=== PATIENT | female | born 1995 | race Hispanic/Latino ===

== ENCOUNTER 2019-08-24 18:14 | Inpatient (IN) | payer SELFPAY ==
[2019-08-24] MEDS ORDERED: NA CHLORIDE 0.9% 1,000 ML ONE (20:12)
[2019-08-24] MEDS ORDERED: MORPHINE 4 MG/ML SYR ONE ×3 (20:12→23:56)
[2019-08-24] MEDS ORDERED: CEFTRIAXONE/SWI 1gm 1 GM/10 ML SYR ONE (20:12)
[2019-08-24] MEDS ORDERED: ONDANSETRON 4 MG/2 ML VIAL ONE ×2 (20:12→23:57)
[2019-08-24 20:18] LABS: Absolute Lymphocytes (CBC) 1.7 K/uL (0.7-4.9); Basophils % 0.6 % (0-1.3); Hematocrit 46.3 % (36.0-45.0); MPV 6.9 fL (7.6-11.3); RBC Red Blood Cell Count 5.31 M/uL (3.86-4.86)
--- NOTE | 2019-08-24 20:21 | RAD REPORT ---
EXAM DESCRIPTION: RAD - Chest Single View - 08/24/2019 8:16 pm CLINICAL HISTORY: Cough;Abdominal distention Chest pain. COMPARISON: No comparisons FINDINGS: Portable technique limits examination quality. The lungs are grossly clear. The heart is normal in size. No displaced fractures. IMPRESSION: No acute intrathoracic process suspected.
[2019-08-24] MEDS ORDERED: ACETAMINOPHEN 325 MG TABLET ONE (20:44)
[2019-08-24 20:59] LABS: ALT/SGPT 31 U/L (12-78); AST/SGOT 16 U/L (15-37); Albumin 3.4 g/dL (3.4-5.0); Alkaline Phosphatase 133 U/L (45-117); BUN Blood Urea Nitrogen 10 mg/dL (7-18); Bicarbonate 24 mmol/L (21-32); Bilirubin Direct < 0.1 mg/dL (0-0.2); Bilirubin Total 0.4 mg/dL (0.2-1.0); Glucose Level 303 mg/dL (74-106); Lipase 89 U/L (73-393); Potassium 3.8 mmol/L (3.5-5.1); Protein, Total 8.2 g/dL (6.4-8.2); Sodium Level 135 mmol/L (136-145)
[2019-08-24 21:05] LABS: HCG, Quantitative < 1 mIU/mL (1-3)
[2019-08-24 21:13] LABS: Urine Blood 1+ (NEG); Urine Glucose 2+ (NEG); Urine Protein 2+ (NEG); Urine Specific Gravity 1.015 (1.005-1.030)
[2019-08-24] MEDS ORDERED: METRONIDAZOLE 500mg IVPB 500 MG/100 ML BAG IV ONE (22:11)
[2019-08-24] MEDS ORDERED: Levofloxacin500mg IV 500 MG/100 ML BAG IV ONE (22:11)
[2019-08-24] MEDS ORDERED: INSULIN -REGULAR HUMAN 50 UNIT/0.5 ML ML ONE (22:58)
--- NOTE | 2019-08-24 23:06 | ER ---
Nurse's Notes [facility] Name: Aurelia Henry Age: 24 yrs Sex: Female : 1995 Arrival Date: 08/24/2019 Time: 18:17 Bed 13 Private MD: Diagnosis: Fever, unspecified;Abdominal tenderness;Vomiting;Pelvic and perineal pain;Type 2 diabetes mellitus Presentation: 08/24 18:51 Presenting complaint: Patient states: PAIN STARTED FRIDAY. IT IS CONSTANTLY MOVING, rv CRAMPING AND THROBBING PAIN. ALSO COMPLAINS OF HEADACHE. RUNNING FEVER, TAKES TYLENOL. PATIENT HAD A MISCARRIAGE LAST JULY. Transition of care: patient was not received from another setting of care. Onset of symptoms was August 22, 2019 at 08:00. Risk Assessment: Do you want to hurt yourself or someone else? Patient reports no desire to harm self or others. Initial Sepsis Screen: Does the patient have a suspected source of infection?. Care prior to arrival: None. 18:51 Method Of Arrival: Ambulatory rv 18:51 Acuity: MONSE 3 rv 19:10 Initial Sepsis Screen: Does the patient meet any 2 criteria? Temp <36.0*C (96.8*F)) or jb4 > 38.3*C (100.9*F). HR > 90 bpm. Yes Does the patient have a suspected source of infection? Yes: Acute abdominal pain. 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 - Social history:: Smoking status: unknown. - Ebola Screening: : No symptoms or risks identified at this time. Screenin:10 Abuse screen: Denies threats or abuse. Nutritional screening: No deficits noted. jb4 Tuberculosis screening: No symptoms or risk factors identified. Fall Risk None identified. Assessment: 19:10 General: Appears in no apparent distress. uncomfortable, Behavior is cooperative, jb4 appropriate for age. Pain: Complains of pain in back and abdomen Pain does not radiate. Pain currently is 10 out of 10 on a pain scale. Quality of pain is described as throbbing. Neuro: Level of Consciousness is awake, alert, obeys commands, Oriented to person, place, time, situation. Cardiovascular: Patient's skin is warm and dry. Respiratory: Airway is patent Respiratory effort is even, unlabored, Respiratory pattern is regular, symmetrical. GI: No deficits noted. No signs and/or symptoms were reported involving the gastrointestinal system. : No deficits noted. No signs and/or symptoms were reported regarding the genitourinary system. EENT: No deficits noted. No signs and/or symptoms were reported regarding the EENT system. Derm: Skin is intact, Skin is pink, warm \T\ dry. Musculoskeletal: Circulation, motion, and sensation intact. Range of motion: intact in all extremities. 20:30 Reassessment: Patient appears in no apparent distress at this time. Patient and/or jb4 family updated on plan of care and expected duration. Pain level reassessed. Patient is alert, oriented x 3, equal unlabored respirations, skin warm/dry/pink. Patient states feeling better. 21:30 Reassessment: Patient appears in no apparent distress at this time. Patient and/or jb4 family updated on plan of care and expected duration. Pain level reassessed. Patient is alert, oriented x 3, equal unlabored respirations, skin warm/dry/pink. 22:45 Reassessment: Patient appears in no apparent distress at this time. Patient and/or jb4 family updated on plan of care and expected duration. Pain level reassessed. Patient is alert, oriented x 3, equal unlabored respirations, skin warm/dry/pink. Patient states feeling better. 08/25 00:00 Reassessment: Patient appears in no apparent distress at this time. Patient and/or jb4 family updated on plan of care and expected duration. Pain level reassessed. Patient is alert, oriented x 3, equal unlabored respirations, skin warm/dry/pink. 01:00 Reassessment: Patient appears in no apparent distress at this time. Patient and/or jb4 family updated on plan of care and expected duration. Pain level reassessed. Patient is alert, oriented x 3, equal unlabored respirations, skin warm/dry/pink. Vital Signs: 08/24 18:53 BP 124 / 102; Pulse 128; Resp 19; Pulse Ox 100% ; Weight 81.65 kg; Height 5 ft. 4 in. rv (162.56 cm); 19:22 Temp 100.2(O); mt 22:00 BP 105 / 61; Pulse 98; Resp 16; Pulse Ox 98% on R/A; mt 22:45 BP 105 / 68; Pulse 91; Resp 18; Temp 98.7(O); Pulse Ox 93% on R/A; jb4 08/25 00:00 BP 118 / 50; Pulse 101; Resp 16; Pulse Ox 95% on R/A; jb4 01:00 BP 116 / 69; Pulse 104; Resp 16; Temp 99.1(O); Pulse Ox 99% on R/A; jb4 08/24 18:53 Body Mass Index 30.90 (81.65 kg, 162.56 cm) rv ED Course: 08/24 18:17 Patient arrived in ED. mr 18:53 Triage completed. rv 19:07 Nils Cedeño MD is Attending Physician. [facility] 19:09 Rajat Foreman, RN is Primary Nurse. jb4 19:10 Patient has correct armband on for positive identification. Placed in gown. Bed in low jb4 position. Call light in reach. Side rails up X 1. Pulse ox on. NIBP on. 19:10 Arm band placed on right wrist. jb4 20:04 Inserted saline lock: 22 gauge in right antecubital area, using aseptic technique. mt Blood collected. 20:17 Chest Single View XRAY In Process Unspecified. EDMS 22:08 CT Abd/Pelvis - PO and IV Contrast In Process Unspecified. EDMS 23:04 Rajat Delatorre MD is Hospitalizing Provider. delisa 23:30 Chidi Dozier is Hospitalizing Provider. [facility] 08/25 00:10 Assist provider with pelvic exam: Set up pelvic tray. Performed by Nils Cedeño MD ea Specimens sent to lab. Patient tolerated well. 01:07 Patient admitted, IV remains in place. jb4 Administered Medications: 08/24 20:19 Drug: Zofran 4 mg Route: IVP; Site: right antecubital; jb4 20:50 Follow up: Response: No adverse reaction; Nausea is decreased jb4 20:22 Drug: morphine 4 mg {Note: Rass score 1.} Route: IVP; Site: right antecubital; jb4 20:50 Follow up: Response: No adverse reaction; Pain is decreased; RASS: Alert and Calm (0) [facility] 20:23 Drug: Rocephin 1 grams Route: IV; Rate: per protocol; Site: right antecubital; [facility] 20:25 Follow up: Response: No adverse reaction; IV Status: Completed infusion [facility] 20:27 Drug: NS 0.9% 1000 ml Route: IV; Rate: 1 bolus; Site: right antecubital; [facility] 21:30 Follow up: Response: No adverse reaction; IV Status: Completed infusion; IV Intake: jb4 1000ml 20:59 Drug: Tylenol 650 mg Route: PO; [facility] 08/25 00:38 Follow up: Response: Temperature is decreased [facility] 08/24 22:13 Drug: morphine 4 mg Route: IVP; Site: right antecubital; ea 22:40 Follow up: Response: No adverse reaction; RASS: Alert and Calm (0) [facility] 22:18 Drug: Flagyl 500 mg Volume: 100 ml; Route: IVPB; Rate: 200 ml/hr; Infused Over: 30 ea mins; Site: right antecubital; 22:48 Follow up: Response: No adverse reaction; IV Status: Completed infusion [facility] 22:51 Drug: levofloxacin 750 mg Volume: 150 ml; Route: IVPB; Infused Over: 90 mins; Site: [facility] right antecubital; 08/25 00:21 Follow up: Response: No adverse reaction; IV Status: Completed infusion [facility] 08/24 23:03 Drug: Insulin Regular Human 8 units {Co-Signature: mary (Deysi Shaffer RN).} Route: [facility] Sub-Q; Site: right lower abdomen; 08/25 01:00 Follow up: Response: No adverse reaction; Blood sugar is lowered [facility] 00:01 CANCELLED (Duplicate Order): morphine 4 mg IVP once; RASS on ADMIN: Combtv4, Very ea Agttd3, Agttd2, Rstlss1, AlertClm0, Drwsy-1, Lt Sdtn-2, Mod Sdtn-3, Dp Sdtn-4, UnArsble-5 00:02 CANCELLED (Duplicate Order): Zofran 4 mg IVP once; over 2 minutes ea 00:05 Drug: morphine 4 mg Route: IVP; Site: right antecubital; ea 00:33 Follow up: Response: No adverse reaction; Pain is decreased; RASS: Alert and Calm (0) jb4 00:05 Drug: Zofran 4 mg Route: IVP; Site: right antecubital; ea 00:32 Follow up: Response: No adverse reaction; Nausea is decreased jb4 00:30 Drug: NS 0.9% 1000 ml Route: IV; Rate: 1 bolus; Site: right antecubital; jb4 01:12 Follow up: Response: No adverse reaction; IV Status: Infusion continued upon admission jb4 00:54 Drug: Motrin 600 mg Route: PO; jb4 01:11 Follow up: Response: No adverse reaction jb4 Intake: 08/24 21:30 IV: 1000ml; Total: 1000ml. jb4 Outcome: 23:05 Decision to Hospitalize by Provider. [facility] 08/25 01:07 Admitted to Tele accompanied by tech, via stretcher, room 428, with chart, Report jb4 called to BRAXTON Henson Condition: stable Discharge instructions given to patient, family, Instructed on the need for admit, Demonstrated understanding of instructions. 01:39 Patient left the ED. 4 Signatures: Dispatcher [employer] EDMS Nils Cedeño MD MD cha Rivera, Rajat Heath RN RN jb4 Thompson, Moriah mt Antunez, Elena, RN RN ea Vicente, Ronaldo, RN RN rv Elena Antunez RN ea Corrections: (The following items were deleted from the chart) 08/24 18:55 18:51 Presenting complaint: Patient states: PAIN STARTED FRIDAY. IT IS CONSTANTLY rv MOVING, CRAMPING AND THROBBING PAIN. ALSO COMPLAINS OF HEADACHE. RUNNING FEVER, TAKES TYLENOL. 08/25 00:33 00:31 Response: No adverse reaction; Pain is decreased jb4 jb4 01:07 08/24 19:10 Patient admitted, IV remains in place. 4 jb4 08/25 01:11 01:09 Initial Sepsis Screen: Does the patient meet any 2 criteria? [facility] jb4
--- NOTE | 2019-08-24 23:07 | EDPHYS ---
Physician Documentation [facility] Name: Aurelia Henry Age: 24 yrs Sex: Female : 1995 Arrival Date: 08/24/2019 Time: 18:17 Bed 13 Private MD: ED Physician Nils Cedeño HPI: 08/24 19:39 This 24 yrs old Female presents to ER via Ambulatory with complaints of Fever, delisa Back Pain. 19:39 The patient reports fever, that was measured at 100.2 degrees Fahrenheit. Onset: The delisa symptoms/episode began/occurred 5 day(s) ago. Modifying factors: there are no obvious modifying factors. Associated signs and symptoms: Pertinent positives: abdominal pain, arthralgias, backache. Severity of symptoms: At their worst the symptoms were moderate in the emergency department the symptoms are unchanged despite home interventions. The patient has not experienced similar symptoms in the past. 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 - Social history:: Smoking status: unknown. - Ebola Screening: : No symptoms or risks identified at this time. ROS: 19:41 Constitutional: Negative for fever, chills, and weight loss, Eyes: Negative for injury, delisa pain, redness, and discharge, ENT: Negative for injury, pain, and discharge, Neck: Negative for injury, pain, and swelling, Cardiovascular: Negative for chest pain, palpitations, and edema, Respiratory: Negative for shortness of breath, cough, wheezing, and pleuritic chest pain, : Negative for injury, bleeding, discharge, and swelling, MS/Extremity: Negative for injury and deformity, Skin: Negative for injury, rash, and discoloration, Neuro: Negative for headache, weakness, numbness, tingling, and seizure, Psych: Negative for depression, anxiety, suicide ideation, homicidal ideation, and hallucinations, Allergy/Immunology: Negative for hives, rash, and allergies, Endocrine: Negative for neck swelling, polydipsia, polyuria, polyphagia, and marked weight changes, Hematologic/Lymphatic: Negative for swollen nodes, abnormal bleeding, and unusual bruising. 19:41 Abdomen/GI: Positive for abdominal pain, of the right upper quadrant, left upper quadrant, right lower quadrant and left lower quadrant. 19:41 Back: Positive for decreased range of motion, pain at rest, pain with movement, of the lumbar area, left low back, left mid back, right mid back and right low back. Exam: 19:41 Constitutional: This is a well developed, well nourished patient who is awake, alert, delisa and in no acute distress. Head/Face: Normocephalic, atraumatic. Eyes: Pupils equal round and reactive to light, extra-ocular motions intact. Lids and lashes normal. Conjunctiva and sclera are non-icteric and not injected. Cornea within normal limits. Periorbital areas with no swelling, redness, or edema. ENT: Nares patent. No nasal discharge, no septal abnormalities noted. Tympanic membranes are normal and external auditory canals are clear. Oropharynx with no redness, swelling, or masses, exudates, or evidence of obstruction, uvula midline. Mucous membranes moist. Neck: Trachea midline, no thyromegaly or masses palpated, and no cervical lymphadenopathy. Supple, full range of motion without nuchal rigidity, or vertebral point tenderness. No Meningismus. Chest/axilla: Normal chest wall appearance and motion. Nontender with no deformity. No lesions are appreciated. Cardiovascular: Regular rate and rhythm with a normal S1 and S2. No gallops, murmurs, or rubs. Normal PMI, no JVD. No pulse deficits. Respiratory: Lungs have equal breath sounds bilaterally, clear to auscultation and percussion. No rales, rhonchi or wheezes noted. No increased work of breathing, no retractions or nasal flaring. Female : Normal external genitalia. Skin: Warm, dry with normal turgor. Normal color with no rashes, no lesions, and no evidence of cellulitis. MS/ Extremity: Pulses equal, no cyanosis. Neurovascular intact. Full, normal range of motion. Neuro: Awake and alert, GCS 15, oriented to person, place, time, and situation. Cranial nerves II-XII grossly intact. Motor strength 5/5 in all extremities. Sensory grossly intact. Cerebellar exam normal. Normal gait. Psych: Awake, alert, with orientation to person, place and time. Behavior, mood, and affect are within normal limits. 19:41 Abdomen/GI: Inspection: distension, Bowel sounds: normal, Palpation: moderate abdominal tenderness, in the right lower quadrant and left lower quadrant, Liver: no appreciated palpable abnormalities, Hernia: not appreciated. 23:30 : Pelvic Exam: External exam: bimanual exam reveals no cervical motion tenderness, delisa discharge, bloody, the nurse was present for the exam, Bladder: is normal. 23:59 : CVA tenderness, noted bilaterally, Pelvic Exam: Speculum exam: scant bleeding, no delisa cervicitis, os that is closed, no tissue in cervix is seen. Vital Signs: 18:53 BP 124 / 102; Pulse 128; Resp 19; Pulse Ox 100% ; Weight 81.65 kg; Height 5 ft. 4 in. rv (162.56 cm); 19:22 Temp 100.2(O); mt 22:00 BP 105 / 61; Pulse 98; Resp 16; Pulse Ox 98% on R/A; mt 22:45 BP 105 / 68; Pulse 91; Resp 18; Temp 98.7(O); Pulse Ox 93% on R/A; jb4 08/25 00:00 BP 118 / 50; Pulse 101; Resp 16; Pulse Ox 95% on R/A; jb4 01:00 BP 116 / 69; Pulse 104; Resp 16; Temp 99.1(O); Pulse Ox 99% on R/A; jb4 08/24 18:53 Body Mass Index 30.90 (81.65 kg, 162.56 cm) rv MDM: 08/24 19:07 Patient medically screened. [facility] 19:42 Data reviewed: vital signs, nurses notes, lab test result(s), radiologic studies, CT delisa scan, plain films. 08/24 19:39 Order name: Basic Metabolic Panel; Complete Time: 21:30 [facility] 08/24 19:39 Order name: CBC with Diff; Complete Time: 21:30 [facility] 08/24 19:39 Order name: Creatinine for Radiology; Complete Time: 21:30 [facility] 08/24 19:39 Order name: Hepatic Function; Complete Time: 21:30 [facility] 08/24 19:39 Order name: Lipase; Complete Time: 21:30 [facility] 08/24 19:39 Order name: HCG-Quantitative; Complete Time: 21:30 [facility] 08/24 19:39 Order name: Blood Culture Adult (2) [facility] 08/24 20:05 Order name: Lactate; Complete Time: 21:30 tx 08/24 20:38 Order name: Urine Dipstick--Ancillary (enter results); Complete Time: 21:30 cm6 08/24 20:38 Order name: Urine --Ancillary (enter results); Complete Time: 21:30 cm6 08/25 00:19 Order name: GC (GONORR/CHLAMYDIA) Probe ea 08/25 00:47 Order name: Wet Prep 6 08/25 01:00 Order name: Glucose, Ancillary Testing [facility] 08/25 01:16 Order name: Wet Prep [facility] 08/24 19:39 Order name: Chest Single View XRAY; Complete Time: 21:30 [facility] 08/24 19:39 Order name: CT Abd/Pelvis - PO and IV Contrast [facility] 08/24 19:39 Order name: IV Saline Lock; Complete Time: 20:05 [facility] 08/24 19:39 Order name: Labs collected and sent; Complete Time: 20:05 [facility] 08/24 19:39 Order name: Urine Dipstick-Ancillary (obtain specimen); Complete Time: 20:38 [facility] 08/24 19:39 Order name: Urine Test (obtain specimen); Complete Time: 20:38 [facility] 08/25 00:22 Order name: CONS Physician Consult [facility] 08/25 00:22 Order name: CONS Physician Consult [facility] Administered Medications: 20:19 Drug: Zofran 4 mg Route: IVP; Site: right antecubital; jb4 20:50 Follow up: Response: No adverse reaction; Nausea is decreased jb4 20:22 Drug: morphine 4 mg {Note: Rass score 1.} Route: IVP; Site: right antecubital; jb4 20:50 Follow up: Response: No adverse reaction; Pain is decreased; RASS: Alert and Calm (0) jb4 20:23 Drug: Rocephin 1 grams Route: IV; Rate: per protocol; Site: right antecubital; jb4 20:25 Follow up: Response: No adverse reaction; IV Status: Completed infusion jb4 20:27 Drug: NS 0.9% 1000 ml Route: IV; Rate: 1 bolus; Site: right antecubital; jb4 21:30 Follow up: Response: No adverse reaction; IV Status: Completed infusion; IV Intake: jb4 1000ml 20:59 Drug: Tylenol 650 mg Route: PO; [facility] 08/25 00:38 Follow up: Response: Temperature is decreased [facility] 08/24 22:13 Drug: morphine 4 mg Route: IVP; Site: right antecubital; ea 22:40 Follow up: Response: No adverse reaction; RASS: Alert and Calm (0) [facility] 22:18 Drug: Flagyl 500 mg Volume: 100 ml; Route: IVPB; Rate: 200 ml/hr; Infused Over: 30 ea mins; Site: right antecubital; 22:48 Follow up: Response: No adverse reaction; IV Status: Completed infusion [facility] 22:51 Drug: levofloxacin 750 mg Volume: 150 ml; Route: IVPB; Infused Over: 90 mins; Site: 4 right antecubital; 08/25 00:21 Follow up: Response: No adverse reaction; IV Status: Completed infusion [facility] 08/24 23:03 Drug: Insulin Regular Human 8 units {Co-Signature: mary (Deysi Shaffer RN).} Route: jb4 Sub-Q; Site: right lower abdomen; 08/25 01:00 Follow up: Response: No adverse reaction; Blood sugar is lowered [facility] 00:01 CANCELLED (Duplicate Order): morphine 4 mg IVP once; RASS on ADMIN: Combtv4, Very ea Agttd3, Agttd2, Rstlss1, AlertClm0, Drwsy-1, Lt Sdtn-2, Mod Sdtn-3, Dp Sdtn-4, UnArsble-5 00:02 CANCELLED (Duplicate Order): Zofran 4 mg IVP once; over 2 minutes ea 00:05 Drug: morphine 4 mg Route: IVP; Site: right antecubital; ea 00:33 Follow up: Response: No adverse reaction; Pain is decreased; RASS: Alert and Calm (0) [facility] 00:05 Drug: Zofran 4 mg Route: IVP; Site: right antecubital; ea 00:32 Follow up: Response: No adverse reaction; Nausea is decreased [facility] 00:30 Drug: NS 0.9% 1000 ml Route: IV; Rate: 1 bolus; Site: right antecubital; [facility] 01:12 Follow up: Response: No adverse reaction; IV Status: Infusion continued upon admission jb4 00:54 Drug: Motrin 600 mg Route: PO; jb4 01:11 Follow up: Response: No adverse reaction jb4 Disposition: 08/24/19 23:05 Hospitalization ordered by Chidi Dozier for Inpatient Admission. Preliminary diagnosis are Fever, unspecified, Abdominal tenderness, Vomiting, Pelvic and perineal pain, Type 2 diabetes mellitus. - Bed requested for Telemetry/MedSurg (Inpatient). - Status is Inpatient Admission. jb4 - Condition is Fair. - Problem is new. - Symptoms have improved. UTI on Admission? No Signatures: Dispatcher [employer] EDMS Nils Cedeño MD MD cha Chretien, Felicia RN Rajat Irene RN RN jb4 Antunez, Elena, RN RN ea Vicente, Ronaldo, RN RN Deysi Shaffer RN, ea Corrections: (The following items were deleted from the chart) 08/24 23:30 23:05 Hospitalization Ordered by Rajat Delatorre MD for Inpatient Admission. Preliminary [facility] diagnosis is Fever, unspecified; Abdominal tenderness; Vomiting. Bed requested for Telemetry/MedSurg (Inpatient). Status is Inpatient Admission. Condition is Fair. Problem is new. Symptoms have improved. UTI on Admission? No. delisa 08/25 00:00 08/24 23:30 08/24/2019 23:05 Hospitalization Ordered by Chidi Dozier for Inpatient [facility] Admission. Preliminary diagnosis is Fever, unspecified; Abdominal tenderness; Vomiting. Bed requested for Telemetry/MedSurg (Inpatient). Status is Inpatient Admission. Condition is Fair. Problem is new. Symptoms have improved. UTI on Admission? No. delisa 08/25 00:01 00:01 morphine 4 mg IVP once; RASS on ADMIN: Combtv4, Very Agttd3, Agttd2, Rstlss1, ea AlertClm0, Drwsy-1, Lt Sdtn-2, Mod Sdtn-3, Dp Sdtn-4, UnArsble-5 ordered. ea 00:02 00:01 Zofran 4 mg IVP once; over 2 minutes ordered. mary ea 00:41 00:00 08/24/2019 23:05 Hospitalization Ordered by Chidi Dozier for Inpatient Admission. Preliminary diagnosis is Fever, unspecified; Abdominal tenderness; Vomiting; Pelvic and perineal pain; Type 2 diabetes mellitus. Bed requested for Telemetry/MedSurg (Inpatient). Status is Inpatient Admission. Condition is Fair. Problem is new. Symptoms have improved. UTI on Admission? No. delisa 01:39 00:41 08/24/2019 23:05 Hospitalization Ordered by Chidi Dozier for Inpatient jb4 Admission. Preliminary diagnosis is Fever, unspecified; Abdominal tenderness; Vomiting; Pelvic and perineal pain; Type 2 diabetes mellitus. Bed requested for Telemetry/MedSurg (Inpatient). Status is Inpatient Admission. Condition is Fair. Problem is new. Symptoms have improved. UTI on Admission? No.
[2019-08-25] MEDS ORDERED: NA CHLORIDE 0.9% 1,000 ML ONE (00:25)
[2019-08-25] MEDS ORDERED: IBUPROFEN 200 MG TAB PO ONE (00:52)
--- NOTE | 2019-08-25 00:52 | P.CNS ---
Date of Consult: 08/25/19 Reason for Consult: Hyperglycemia Requesting Physician: Kenton Hassan Chief Complaint: Suprapubic pain, fever and chills History of Present Illness: 24-year-old woman with a history of diabetes mellitus type 2 presented to the emergency department with a complaint suprapubic pain, fever and chills of 2 days duration. Patient reports having a miscarriage about 2-3 weeks ago. She stated she did not know she was . Her last menstrual period was 1st week in May,. His test was positive at the time she experienced abdominal cramping, vaginal bleed with clot and diagnosed with spontaneous . She stated she had vaginal blood spotting for 2 weeks after the miscarriage. The spotting stopped only a week ago. Patient has no leukocytosis, UA is negative for UTI. CT abdomen and pelvis is unremarkable. There is high suspicious for infection from retained product or pelvic inflammatory disease. Also noted her blood sugar severely elevated to 300. She has been using metformin for diabetes. She was recently told she needs to be switched to insulin. Allergies No Known Allergies Allergy (Verified 08/25/19 01:24) Home Medications: NK [No Home Meds] 08/25/19 - Past Medical/Surgical History -: Diabetes mellitus type 2 - Family History Mother Medical History: Diabetes - Social History Smoking Status: Never smoker Alcohol use: Yes CD- Drugs: No Review of Systems Other: General: No unintentional weight loss. Eyes: No eye discharge, Respiratory: No cough, no shortness of breath. CVS: No chest pain, no palpitation, no lightheadedness. GI: No nausea no vomit, no constipation, no diarrhea. Genitourinary: No dysuria, no urinary frequency, no incontinence, no hematuria. Musculoskeletal: No joint pains, or joint swelling, no gait instability. Neurology: She endorsed headache, no asymmetric, weakness, no problem with swallowing. Except as documented, all other systems reviewed and negative. Physical Examination General: Alert, In no apparent distress, Oriented x3 HEENT: Normocephalic, PERRLA, Mucous membr. moist/pink, Sclerae nonicteric Neck: Supple, JVD not distended, No Thyromegaly Respiratory: Clear to auscultation bilaterally, Normal air movement Cardiovascular: No edema, Normal pulses, Regular rate/rhythm, Normal S1 S2, No murmurs Capillary refill: <2 Seconds Gastrointestinal: Normal bowel sounds, Soft and benign, No rebound, Tenderness ( Suprapubic area) Musculoskeletal: No swelling Integumentary: No rashes, No erythema Neurological: Normal speech, Normal strength at 5/5 x4 extr, Cranial nerves 3- 12 intact Laboratory Data (last 24 hrs) 08/24/19 20:01: Creatinine 0.74 08/24/19 20:01: WBC 8.2, Hgb 15.6 H, Hct 46.3 H, Plt Count 334 08/24/19 20:01: Sodium 135 L, Potassium 3.8, BUN 10, Creatinine 0.71, Glucose 303 H, Total Bilirubin 0.4, AST 16, ALT 31, Alkaline Phosphatase 133 H, Lipase 89 - Problems (1) Type 2 diabetes mellitus with hyperglycemia Current Visit: Yes Status: Chronic (2) Fever Current Visit: Yes Status: Acute (3) Suprapubic pain Current Visit: Yes Status: Acute (4) Miscarried within last 12 months Current Visit: Yes Status: Acute Conclusions/Impression: Patient admitted medical floor. Use insulin sliding scale for glucose management. Check hemoglobin A1c IV antibiotics for suspected PID Gynecology team to see patient Pelvic/Vaginal USG requested Pain management with IV morphine IV hydration Follow cultures.
[2019-08-25] MEDS ORDERED: MORPHINE 4 MG/ML SYR IV PRN (01:25)
[2019-08-25] MEDS ORDERED: D50W 25 GM/50 ML SYRINGE/VIAL IV PRN (01:25)
[2019-08-25] MEDS ORDERED: GLUCAGON 1 MG/VIAL IM PRN (01:25)
[2019-08-25] MEDS: NA CHLORIDE 0.9% 1,000 ML IV SCH ×5 (02:17→21:03)
[2019-08-25] MEDS: METRONIDAZOLE 500mg IVPB 500 MG/100 ML BAG IV SCH ×3 (05:20→17:30)
[2019-08-25] MEDS: INSULIN -REGULAR HUMAN 50 UNIT/0.5 ML ML SQ SCH ×4 (06:26→21:04)
[2019-08-25] MEDS: ONDANSETRON 4 MG/2 ML VIAL IV PRN ×2 (06:27→21:03)
[2019-08-25] MEDS ORDERED: INSULIN -REGULAR HUMAN 50 UNIT/0.5 ML ML SQ SCH (07:30)
[2019-08-25] MEDS ORDERED: INFLUENZA VACCINE (for 3y+) 0.5 ML DOSE IMVAC ONE (08:00)
--- NOTE | 2019-08-25 08:26 | RAD REPORT ---
EXAM DESCRIPTION: US - Abdomen Exam Limited - 08/25/2019 7:51 am CLINICAL HISTORY: ro gallstones, abdominal pain COMPARISON: Abdomen Pelvis W Contrast dated 08/24/2019 FINDINGS: No gallstones, sludge or other abnormalities within the gallbladder lumen. There is no wal l thickening or pericholecystic fluid. No common duct stone or biliary tree dilatation identified. Fatty liver changes again noted. IMPRESSION: Normal gallbladder and biliary tree ultrasound.
--- NOTE | 2019-08-25 08:28 | RAD REPORT ---
EXAM DESCRIPTION: US - Transvaginal Study Probe - 08/25/2019 8:13 am CLINICAL HISTORY: Abdominal pain, pelvic pain, recent miscarriage COMPARISON: None. TECHNIQUE: Endovaginal sonography was performed. FINDINGS: Endometrium is 4-5 mm in thickness. There is a normal endometrium - myometrium interface. No hematoma, mass or other findings to suspect retained products conception. No suspicious myometrial mass. There is a small hypoechoic fibroid or cyst within the posterior myometrium. This is not regar ded as significant. Nabothian cysts seen. No fluid or blood in the cul-de-sac. Right ovary is 2.0 x 1.5 x 2.1 cm. Left ovary is 1.9 x 1.8 x 1.7 cm. Normal blood flow seen within th e ovarian stroma. No fallopian tube dilatation. No dominant solid or cystic ovarian or adnexal findin g. IMPRESSION: Endometrium is 4-5 mm in thickness. No suspicion for retained products of conception.
[2019-08-25 08:33] LABS: Absolute Lymphocytes (CBC) 1.4 K/uL (0.7-4.9); Basophils % 0.4 % (0-1.3); Hematocrit 39.2 % (36.0-45.0); Lymphocytes % 19.3 % (15.3-44.8); MPV 6.8 fL (7.6-11.3); RBC Red Blood Cell Count 4.49 M/uL (3.86-4.86)
[2019-08-25] MEDS: FAMOTIDINE 20 MG/2 ML VIAL IV SCH ×2 (09:21→21:04)
--- NOTE | 2019-08-25 11:51 | PREOPHP ---
Date of Admission: 08/25/2019 This is a 24-year-old female gives history of August 02 went to the emergency room in [place] for which she was taken for spontaneous . They did blood work on her. No pelvic exam. No ultra sound and send her home. She continued to have some bleeding but then the bleeding stopped. Within t he last 2 to 3 days ago she started having fever and abdominal discomfort. She came to our emergency room with the same complaints. CAT scan was really unrevealing. White count normal. She is diabet ic and her blood sugar was 300. Initial examination through the emergency room showed test was negative but she had mild tenderness according to the examining doctor in the emergency room, bu t she has basically generalized abdominal discomfort especially in the lower quadrants. She has had no nausea or vomiting. Mild fever. No chills. This morning, she is somewhat sleepy but when she carlos s awakened is more alert. Her abdomen is indeed tender especially in the lower quadrants. Pelvic ex am demonstrates tenderness. The cervical os is closed. There is no blood and there is no foul odor. The rest of the exam is basically normal. There is suspicion for septic but other abdomin al problems have to be considered as well. She has an abdominal and vaginal ultrasounds planned and I have told the nurses of this for it needs to be done in a more stat basis. If the patient has ayan ined products, obviously she will need a D and C, and if no retained products then it is somewhat con fusing as what kind of abdominal problem she could have, causing her such discomfort. We will run fu rther studies and then decide as the day goes on. The patient is to be kept n.p.o. in case surgery i s needed and but the initial white count was less than 10,000 this does appear somewhat unusual if it is a peritonitis. TONYA/DAVIS Voice ID: [id number]
--- NOTE | 2019-08-25 12:24 | RAD REPORT ---
EXAM DESCRIPTION: CT - Abdomen Pelvis W Contrast - 08/25/2019 1:19 am CLINICAL HISTORY: 24-year-old female with abdominal pain TECHNIQUE: Axial CT imaging of the abdomen and pelvis was performed following the administration of intravenous contrast.. Sagittal and coronal reconstructed images were then performed. The CT stud y is performed according to ALARA (as low as reasonably achievable) or ALARA/IMAGE GENTLY, with autom atic adjustment of mA and/or kV according to patient size. Performed on: 08/24/2019 at 10:02 PM. COMPARISON: None FINDINGS: Lung bases: The lung bases are clear. Liver: The liver is enlarged and measures 20 cm in craniocaudal dimension. No focal hepatic abnormali ties are identified. Liver attenuation is within normal limits. Spleen: The spleen is normal is size, configuration and attenuation. Gallbladder and bile duct: The gallbladder is well distended and unremarkable. There is no biliary ductal dilatation. Pancreas: The pancreas is grossly normal in size and configuration. Adrenal Glands: The adrenal glands are normal in size and configuration. Kidneys: The kidneys are normal in size and configuration. There is no evidence of hydronephrosis. Th ere is no evidence of nephrolithiasis. No definite solid or cystic renal mass lesions are identified. Stomach: The stomach is grossly normal. There is no definite hiatal hernia. Bowel: The bowel gas pattern is non specific and non obstructive. Appendix: The appendix is normal. Free air: There is no evidence of free air. Free fluid: There is no evidence of free fluid. Vasculature: The aorta is normal in caliber and contour. The inferior vena cava is grossly unremarkab le. Lymphadenopathy: No pathologic lymphadenopathy is identified. Bladder: The bladder is well distended and smooth in contour. Reproductive: The uterus is grossly within normal limits. Bones: No acute osseous abnormalities are identified. Soft tissues: No focal soft tissue abnormalities are identified. IMPRESSION: 1. No evidence of acute intra-abdominal or intrapelvic pathology. 2. Hepatomegaly. Electronically signed by: Yesica Rojas DO 08/24/2019 11:05 PM [facility] Due to temporary technical issues with the PACS/Fluency reporting system, reports are being signed by the in house radiologist as a courtesy to ensure prompt reporting. The interpreting radiologist is f ully responsible for the content of the report.
--- NOTE | 2019-08-25 13:37 | P.CNS ---
Date of Consult: 08/25/19 PC: I was asked to see this 24-year-old female in regards or generalized abdominal pain. HPC: This patient apparently underwent a spontaneous about 2-3 weeks ago. She was seen at another facility thereafter. She was discharged. Since then she has been having some spotting but yesterday developed severe abdominal pain and came to this facility for diagnosis and treatment. PMH: Diabetes PSHx: Adali SOC: No known allergy SYS REVIEW: No cough, wheeze, shortness of breath. No chest pain or palpitations. Denies any urinary complaints. O/E awake alert uncomfortable vital Signs are stay HEENT: Not jaundice Chest: Chest movement equal bile ABD: Tender diffusely all over the abdomen but no guarding or rebound LOCO: Intact DATA: Within normal limit, CT scan is negative, ultrasound noncontributory IMPRESSION: I was asked to see this patient regards to her pain. She does not have any obvious surgical issue at this time. I reviewed with the radiologist on the CT scan. A Zoey appears to be grossly normal. She has been seen by a DIRECTOR OF ACCOUNTING. PLAN: This patient does not appear to have any obvious abdominal issue that requires general surgery intervention. I discussed this with her attending. May possibly require transfer. Will follow until that time.
[2019-08-25] MEDS: ACETAMINOPHEN 500 MG TAB PO PRN (18:20)
[2019-08-25] MEDS: KETOROLAC 30 MG/ML INJ IV PRN (21:03)
[2019-08-25] MEDS: Levofloxacin 750mg IV 750 MG/150 ML BAG IV SCH (21:03)
[2019-08-25] MEDS: ZOLPIDEM TARTRATE 10 MG TABLET PO PRN (21:05)
[2019-08-26] MEDS: NA CHLORIDE 0.9% 1,000 ML IV SCH ×3 (01:24→17:23)
[2019-08-26] MEDS: METRONIDAZOLE 500mg IVPB 500 MG/100 ML BAG IV SCH ×4 (01:29→17:22)
[2019-08-26 05:47] LABS: Absolute Lymphocytes (CBC) 2.1 K/uL (0.7-4.9); Basophils % 0.7 % (0-1.3); Hematocrit 38.1 % (36.0-45.0); Lymphocytes % 51.2 % (15.3-44.8); MPV 7.1 fL (7.6-11.3); RBC Red Blood Cell Count 4.38 M/uL (3.86-4.86)
[2019-08-26 06:11] LABS: ALT/SGPT 33 U/L (12-78); AST/SGOT 20 U/L (15-37); Albumin 2.3 g/dL (3.4-5.0); Alkaline Phosphatase 100 U/L (45-117); BUN Blood Urea Nitrogen 13 mg/dL (7-18); Bicarbonate 22 mmol/L (21-32); Bilirubin Direct < 0.1 mg/dL (0-0.2); Bilirubin Total 0.2 mg/dL (0.2-1.0); Glucose Level 268 mg/dL (74-106); Lipase 115 U/L (73-393); Protein, Total 6.1 g/dL (6.4-8.2); Sodium Level 141 mmol/L (136-145)
[2019-08-26] MEDS: ACETAMINOPHEN 500 MG TAB PO PRN (06:49)
[2019-08-26] MEDS: FAMOTIDINE 20 MG/2 ML VIAL IV SCH ×2 (07:29→20:58)
[2019-08-26] MEDS: INSULIN -REGULAR HUMAN 50 UNIT/0.5 ML ML SQ SCH ×4 (08:49→21:11)
--- NOTE | 2019-08-26 09:36 | PN ---
Blood sugars are improving with sliding scale, but we will let hospitalist continue to control her di et and insulin requirements. Patient is apparently hungry. I think that is a sign of improvement, s o we will put her on a diet. She has ambulated. She has not requested any kind of analgesics. I carlos ve ordered analgesics, tramadol 30 mg IV q.12 if she needs it. Ambien for sleep. Her white count is continuing to improve. Clinically, it appears the patient is making progress. The exact etiology o f her discomfort is unknown. I consulted with Dr. Delatorre who checked the patient, says he does not see anything that he can do. CAT scan and ultrasounds are both negative. It does not appear she has a septic . Does not appear she has any peritoneal fluid, so laparoscopic examination at thi s point I do not think is called for. If it were, we will probably have to get General Surgery to do it since it does not appear to be anything in the pelvis. If she continues to make progress with th e antibiotic she is on, we will keep her until she is asymptomatic and then send her home on antibiot ics for a week to 10 days. At this point, patient is stable and afebrile since 4 a.m., even then tem perature was only 100.1. Continue IV antibiotics. TONYA/DAVIS Voice ID: [id number] Report ID: [id number]
--- NOTE | 2019-08-26 09:42 | PN ---
Patient seems to be improving. pain scale 0. This morning, she has headaches. Her abdominal pain is basically absent. She still has lower back pain. She has ambulated yesterday. She was hungry and ate. I have asked for assistance in her diabetic control but that does not seem to be forthcoming right now. We will get someone to look at her and she is on a sliding scale but I think it needs to be adjusted. From [employer]ORTER and surgical standpoint, her abdomen is becoming less of a problem. Her white count have fallen. Her pulses are all in the normal range and the patient herself says she feels better other than the headache. Discussion with the patient and , I think we need to continue antibiotics for at least another 24 hours and then when she is dismissed she will need to take oral antibiotics for 10 days to 2 weeks in my opinion. We will see what type of progress we are getting in the next 24 hours, but right now things are looking much better. TONYA/DAVIS Voice ID: [id number] Report ID: [id number] REBECCA
[2019-08-26] MEDS ORDERED: D50W 25 GM/50 ML SYRINGE/VIAL IV PRN (10:12)
[2019-08-26] MEDS ORDERED: GLUCAGON 1 MG/VIAL IM PRN (10:12)
--- NOTE | 2019-08-26 14:23 | P.PN ---
Subjective Date of Service: 08/26/19 Chief Complaint: Suprapubic pain, fever and chills Subjective: No C/O voiced, Tolerating diet, Improving, Working w/ PT, Doing well Review of Systems 10-point ROS is otherwise unremarkable Physical Examination - Vital Signs Temperature: 97.9 F Blood Pressure: 117/70 Pulse: 68 Respirations: 16 Pulse Ox (%): 99 - Physical Exam General: Alert, In no apparent distress HEENT: Atraumatic, PERRLA, EOMI Neck: Supple, JVD not distended Respiratory: Clear to auscultation bilaterally, Normal air movement Cardiovascular: Regular rate/rhythm, Normal S1 S2 Gastrointestinal: Normal bowel sounds, No tenderness Musculoskeletal: No tenderness Integumentary: No rashes Neurological: Normal speech, Normal tone, Normal affect Lymphatics: No axilla or inguinal lymphadenopathy - Studies Microbiology Data (last 24 hrs): 08/24/19 19:50 Blood - Blood Anaerobic Blood Culture - Final Medications List Reviewed: Yes Assessment And Plan - Plan Impression/Plan (1) Type 2 diabetes mellitus with hyperglycemia -ACHS and Mod Sliding scale -BS is < 250 which is the goal here in the hospital -Added NATALI benitez 07/27 -Monitor BS (2) Fever -Resolved (3) Suprapubic pain -Resolved (4) Miscarried within last 12 months -OBGYN Primary on the case. -Plan as per OBGYN Dispo: Will Follow along with OBGYN for medical mgmt
[2019-08-26] MEDS: Oxycodone HCl/Acetaminophen 1 TAB TAB PO PRN (15:29)
[2019-08-26] MEDS ORDERED: INSULIN GLARGINE 100 UNITS/ML SQ SCH (17:00)
[2019-08-26] MEDS: KETOROLAC 30 MG/ML INJ IV PRN (20:57)
[2019-08-26] MEDS: ZOLPIDEM TARTRATE 10 MG TABLET PO PRN (20:58)
[2019-08-26] MEDS: Levofloxacin 750mg IV 750 MG/150 ML BAG IV SCH (21:10)
[2019-08-27 00:12] VITALS: BMI 37.0
[2019-08-27] MEDS: NA CHLORIDE 0.9% 1,000 ML IV SCH ×2 (04:22→08:52)
[2019-08-27] MEDS: METRONIDAZOLE 500mg IVPB 500 MG/100 ML BAG IV SCH ×2 (05:52)
[2019-08-27] MEDS ORDERED: INSULIN GLARGINE 100 UNITS/ML SQ SCH (08:00)
[2019-08-27] MEDS: Oxycodone HCl/Acetaminophen 1 TAB TAB PO PRN (08:33)
[2019-08-27] MEDS: INSULIN -REGULAR HUMAN 50 UNIT/0.5 ML ML SQ SCH (08:34)
[2019-08-27] MEDS: FAMOTIDINE 20 MG/2 ML VIAL IV SCH (08:34)
[2019-08-27 08:39] VITALS: BP 124/78; TEMP 97.7
[2019-08-27 08:41] VITALS: O2SAT 99
--- NOTE | 2019-08-28 03:45 | DS ---
Date of Discharge: 08/27/2019 This is a 24-year-old female, admitted through the emergency room with fever, abdominal pain. One mo nth prior to admission she had, had spontaneous AB. Evaluation during her stay here in the hospital has shown CAT scan was negative. Ultrasound of the pelvis and upper abdomen negative. White count n ever got above 8000. She did have a shift in the lymphocytes, possibly indicating viral infection. She has been afebrile now for almost 48 hours. Her abdominal pain has resolved. She occasionally carlos s headaches and lower back pain, but otherwise she is ambulating. She is eating. Diabetes was not i n good control. She has been seen by a hospitalist for that and she knows she needs followup for her diabetes management, otherwise miscarriages would probably be more frequent. She is given a prescri ption for metronidazole will be taken 3 times a day for 10 days. No alcohol. Levofloxacin 500 mg on ce a day for 10 days. I have given her some names of family doctor she can follow up with and of cou rse if she has any PREFITTER problems, she can see me. We have asked her to try to get her diabetes under control possibly with the [facility] before she attempts again. The risk for miscarriages will be higher and of course, high risk would result. But from the clinical standpoint, s he has significantly improved from the time of admission. She showed me pictures of what was thought to be her miscarriage, but of course, I cannot tell her what it is because there is no pathology marcelo ilable, but the ultrasound demonstrated nothing retained inside the uterus. She will eat breakfast a nd then if all is well, will be dismissed to follow up with family physician. TONYA/DAVIS Voice ID: [id number] Report ID: [id number]
[2019-08-30 14:11] LABS: C.trachomatis RNA,TMA Not Detected (Not Detected)
== END 2019-08-27 09:22 | disposition home or self-care (01) | DRG 866 ==
LOC: ER 18:14 → ERHOLD 08-25 00:22 → 4TH 08-25 01:08
PROVIDERS: ADMIT Specialist; ATTEND Specialist
DX: B34.9 Viral infection, unspecified (principal); R50.9 Fever, unspecified; R10.2 Pelvic and perineal pain; E11.65 Type 2 diabetes mellitus with hyperglycemia
CPT/HCPCS: 36415; 71045; 74177; 76705; 76830; 80048; 80076; 81003; 81025; 82947; 83036; 83605; 83690; 84702; 85025; 87040; 87210; 87490; 87590; 96361; 96365; 96367; 96372; 96375; 99285; J0696; J1815; J2405; J7030; Q9967

== ENCOUNTER 2019-11-01 11:10 | Emergency (ER) | payer SELFPAY ==
--- OUTSIDE RECORDS SUMMARY | 2019-11-01 11:12 | XMS REPORT ---
:1995 [facility] Address [address] [place] [address] Dr. Fallon [address] [place] [id number] Care Team Providers Name Role Phone Unavailable Unavailable Unavailable Problems This patient has no known problems. Allergies, Adverse Reactions, Alerts This patient has no known allergies or adverse reactions. Medications This patient has no known medications. Encounters Start End Encounter Admission Attending Care Care Encounter Date/Time Date/Time Type Type Clinicians Facility Department ID 2019-08-02 2019-08-02 Emergency E [facility] [id number] 13:35:00 13:35:00 2019-02-16 2019-02-16 Emergency E [facility] [id number] 11:51:00 11:51:00 2019-02-15 2019-02-15 Emergency E [facility] [id number] 20:09:00 20:09:00 2019-02-12 2019-02-12 Emergency E [facility] 7510 11:54:00 11:54:00
--- NOTE | 2019-11-01 12:13 | RAD REPORT ---
EXAM DESCRIPTION: CT - Head Brain Wo Cont - 11/01/2019 11:55 am CLINICAL HISTORY: Headache COMPARISON: None. TECHNIQUE: Computed axial tomography of the head was obtained. IV contrast was not requested. All CT scans are performed using dose optimization technique as appropriate and may include automated exposure control or mA/KV adjustment according to patient size. FINDINGS: An intracranial bleed is not seen . The ventricles are normal in caliber. No extra-axial fluid collection is noted. Fluid within the sinuses/ mastoids is not seen. IMPRESSION: No acute intracranial abnormality is seen. If patient's symptoms persist MRI of the bra in would be recommended.
[2019-11-01 12:22] LABS: Basophils % 0.7 % (0-1.3); Hematocrit 44.8 % (36.0-45.0); MPV 6.5 fL (7.6-11.3); RBC Red Blood Cell Count 5.28 M/uL (3.86-4.86)
[2019-11-01] MEDS ORDERED: KETOROLAC 30 MG/ML INJ ONE (12:29)
[2019-11-01] MEDS ORDERED: DIPHENHYDRAMINE 50 MG/ML VIAL ONE (12:29)
[2019-11-01] MEDS ORDERED: NA CHLORIDE 0.9% 1,000 ML ONE (12:29)
[2019-11-01] MEDS ORDERED: METOCLOPRAMIDE 10 MG/2mL INJ ONE (12:29)
[2019-11-01 12:38] LABS: ALT/SGPT 79 U/L (12-78); AST/SGOT 44 U/L (15-37); Albumin 3.3 g/dL (3.4-5.0); Alkaline Phosphatase 175 U/L (45-117); BUN Blood Urea Nitrogen 8 mg/dL (7-18); Bicarbonate 28 mmol/L (21-32); Bilirubin Direct 0.1 mg/dL (0-0.2); Bilirubin Total 0.4 mg/dL (0.2-1.0); Glucose Level 343 mg/dL (74-106); Lipase 294 U/L (73-393); Potassium 3.9 mmol/L (3.5-5.1); Protein, Total 8.3 g/dL (6.4-8.2); Sodium Level 136 mmol/L (136-145)
[2019-11-01 12:41] LABS: Urine Blood NEGATIVE (NEG); Urine Glucose 2+ (NEG); Urine Protein NEGATIVE (NEG)
--- NOTE | 2019-11-01 13:09 | ER ---
Nurse's Notes [facility] – [place], [place] Name: Aurelia Henry Age: 24 yrs Sex: Female : 1995 Arrival Date: 11/01/2019 Time: 11:12 Bed 4 Private MD: Diagnosis: Migraine without aura;Elevated blood glucose level Presentation: 11/01 11:35 Presenting complaint: Patient states: intermittent R sided facial tingling and headache ss that began at 0530 this AM. Transition of care: patient was not received from another setting of care. Onset of symptoms was November 01, 2019 at 05:30. Risk Assessment: Do you want to hurt yourself or someone else? Patient reports no desire to harm self or others. Initial Sepsis Screen: Does the patient meet any 2 criteria? No. Patient's initial sepsis screen is negative. Does the patient have a suspected source of infection? No. Patient's initial sepsis screen is negative. Note Pt reports she is diabetic and is supposed to be taking insulin, but only takes metformin at this time. Care prior to arrival: None. 11:35 Method Of Arrival: Ambulatory ss 11:35 Acuity: MONSE 2 ss Historical: - Allergies: 11:38 No Known Allergies; ss - Home Meds: 11:38 metformin 500 mg Oral tab 1 tab 2 times per day [Active]; ss - PMHx: 11:38 Diabetes - NIDDM; ss - PSHx: 11:38 None; ss - Immunization history:: Adult Immunizations up to date. - Social history:: Smoking status: Patient denies any tobacco usage or history of. Patient/guardian denies using alcohol, street drugs, The patient lives alone, with family. - Ebola Screening: : Patient denies exposure to infectious person Patient denies travel to an Ebola-affected area in the 21 days before illness onset. - Family history:: not pertinent. Screenin:55 Abuse screen: Denies threats or abuse. Denies injuries from another. Nutritional sv screening: No deficits noted. Tuberculosis screening: No symptoms or risk factors identified. Patient has been NPO before screening. The patient is alert, able to follow commands. The patient does not exhibit slurred or garbled speech The patient is not exhibiting difficulty speaking. The patient does not exhibit difficulty understanding words. The patient is able to swallow own secretions with no drooling or need for suction. Patient tolerated one teaspoon of water. No drooling, immediate coughing, gurgling, or clearing of the throat was noted. The patient tolerated 90mL of water. No drooling, immediate coughing, gurgling, or clearing of the throat was noted. The patient passed the bedside swallow screening. Oral medications may be given as ordered. Contact Physician for further diet orders. Provider notified of bedside swallow screening results: Kavitha Rondon MD. Fall Risk None identified. Assessment: 11:41 Reassessment: VAN scoring negative. ss 11:55 General: Appears in no apparent distress. comfortable, well developed, Behavior is sv calm, cooperative, appropriate for age, Reports that she does not check her blood sugars daily, nor take her medications daily. Pt stated that she does when she remembers or feels like it. Pt stated that she doesn't have insurance and is waiting until next month to get it so she can see a PCP. Pain: Complains of pain in forehead Pain does not radiate. Pain currently is 3 out of 10 on a pain scale. Quality of pain is described as throbbing, Pain began 1 day ago. Is continuous. Neuro: Level of Consciousness is awake, alert, obeys commands, Oriented to person, place, time, situation, Gear Shaper Set Up Operator are equal bilaterally Moves all extremities. Full function Gait is steady, Speech is normal, Facial symmetry appears normal, Reports numbness in right zygomatic area and right cheek since 0530, went to bed last night around 2100. Cardiovascular: Patient's skin is warm and dry. Respiratory: Airway is patent Respiratory effort is even, unlabored, Respiratory pattern is regular, symmetrical. Derm: Skin is pink, warm \T\ dry. Musculoskeletal: Range of motion: intact in all extremities. 12:34 Reassessment: Patient appears in no apparent distress at this time. Patient and/or sv family updated on plan of care and expected duration. Pain level reassessed. Patient is alert, oriented x 3, equal unlabored respirations, skin warm/dry/pink. Patient states feeling better. Patient states symptoms have improved. 13:54 Reassessment: Patient appears in no apparent distress at this time. Patient and/or sv family updated on plan of care and expected duration. Pain level reassessed. Patient is alert, oriented x 3, equal unlabored respirations, skin warm/dry/pink. Patient states feeling better. Patient states symptoms have improved. Vital Signs: 11:38 BP 138 / 101; Pulse 94; Resp 16; Temp 97.7(TE); Pulse Ox 98% on R/A; Weight 99.79 kg; ss Height 5 ft. 2 in. (157.48 cm); Pain 0/10; 13:06 BP 105 / 73; Pulse 73; Resp 14; Pulse Ox 97% ; sv 11:38 Body Mass Index 40.24 (99.79 kg, 157.48 cm) ED Course: 11:12 Patient arrived in ED. ds1 11:37 Triage completed. ss 11:38 Arm band placed on right wrist. ss 11:42 Kavitha Rondon MD is Attending Physician. ma2 11:49 Marija Trujillo RN is Primary Nurse. sv 11:55 Patient has correct armband on for positive identification. Placed in gown. Bed in low sv position. Call light in reach. Side rails up X 1. Pulse ox on. NIBP on. Door closed. Head of bed elevated. 11:56 CT Head Brain wo Cont In Process Unspecified. EDMS 11:[address]. sv 12:30 Inserted saline lock: 20 gauge in right antecubital area, using aseptic technique. sv Blood collected. Flushed right antecubital with 5 ml normal saline. 13:04 Glucose, Ancillary Testing Sent. sv 13:54 No provider procedures requiring assistance completed. IV discontinued, intact, sv bleeding controlled, No redness/swelling at site. Pressure dressing applied. Administered Medications: 12:34 Drug: NS 0.9% 1000 ml Route: IV; Rate: 1 bolus; Site: right antecubital; sv 13:30 Follow up: Response: No adverse reaction; IV Status: Completed infusion; IV Intake: sv 1000ml 12:34 Drug: Ketorolac 15 mg Route: IVP; Site: right antecubital; sv 13:00 Follow up: Response: No adverse reaction; Marked relief of symptoms; Pain is decreased sv 12:35 Drug: Reglan 10 mg Route: IVP; Site: right antecubital; sv 13:00 Follow up: Response: No adverse reaction sv 12:37 Drug: Benadryl 50 mg Route: IVP; Site: right antecubital; sv 13:00 Follow up: Response: No adverse reaction sv Intake: 13:30 IV: 1000ml; Total: 1000ml. sv Outcome: 13:08 Discharge ordered by MD. bernardo 13:54 Patient left the ED. ss 13:54 Discharged to home ambulatory, with family. sv 13:54 Condition: stable 13:54 Discharge instructions given to patient, family, Instructed on discharge instructions, follow up and referral plans. no drinking with medication, no driving heavy equipment, medication usage, Demonstrated understanding of instructions, follow-up care, medications, Prescriptions given X 2. Signatures: Dispatcher [employer] EDMS Marija Trujillo RN RN Annika Vasquez ds1 Amy Ray RN RN ss Alzahri, Mohammad, MD MD ma2 Corrections: (The following items were deleted from the chart) 13:10 13:06 Pulse 73bpm; Resp 16bpm; Pulse Ox 97%; sv sv 18:23 11:55 General: Appears in no apparent distress. comfortable, well developed, Behavior sv is calm, cooperative, appropriate for age, sv 18:24 12:34 Reassessment: Patient appears in no apparent distress at this time. No changes sv from previously documented assessment. Patient and/or family updated on plan of care and expected duration. Pain level reassessed. Patient is alert, oriented x 3, equal unlabored respirations, skin warm/dry/pink. Patient states feeling better. Patient states symptoms have improved. sv
--- NOTE | 2019-11-01 13:10 | EDPHYS ---
Physician Documentation [facility] Name: Aurelia Henry Age: 24 yrs Sex: Female : 1995 Arrival Date: 11/01/2019 Time: 11:12 Bed 4 Private MD: ED Physician Kavitha Rondon HPI: 11/01 13:06 This 24 yrs old Female presents to ER via Ambulatory with complaints of R Side ma2 Facial Numbness. 13:06 The patient complains of pain to the right ear and right yazdanism. Onset: The ma2 symptoms/episode began/occurred gradually, 1 day(s) ago. Severity of symptoms: At its worst the pain was moderate, in the emergency department the pain is unchanged. The patient has experienced similar episodes in the past. Historical: - Allergies: 11:38 No Known Allergies; ss - Home Meds: 11:38 metformin 500 mg Oral tab 1 tab 2 times per day [Active]; ss - PMHx: 11:38 Diabetes - NIDDM; ss - PSHx: 11:38 None; ss - Immunization history:: Adult Immunizations up to date. - Social history:: Smoking status: Patient denies any tobacco usage or history of. Patient/guardian denies using alcohol, street drugs, The patient lives alone, with family. - Ebola Screening: : Patient denies exposure to infectious person Patient denies travel to an Ebola-affected area in the 21 days before illness onset. - Family history:: not pertinent. ROS: 13:06 Constitutional: Negative for fever, chills, and weight loss. ma2 13:06 All other systems are negative. Exam: 13:06 Constitutional: This is a well developed, well nourished patient who is awake, alert, ma2 and in no acute distress. Head/Face: Normocephalic, atraumatic. Eyes: Pupils equal round and reactive to light, extra-ocular motions intact. Lids and lashes normal. Conjunctiva and sclera are non-icteric and not injected. Cornea within normal limits. Periorbital areas with no swelling, redness, or edema. ENT: Nares patent. No nasal discharge, no septal abnormalities noted. Tympanic membranes are normal and external auditory canals are clear. Oropharynx with no redness, swelling, or masses, exudates, or evidence of obstruction, uvula midline. Mucous membranes moist. Neck: Trachea midline, no thyromegaly or masses palpated, and no cervical lymphadenopathy. Supple, full range of motion without nuchal rigidity, or vertebral point tenderness. No Meningismus. Chest/axilla: Normal chest wall appearance and motion. Nontender with no deformity. No lesions are appreciated. Cardiovascular: Regular rate and rhythm with a normal S1 and S2. No gallops, murmurs, or rubs. Normal PMI, no JVD. No pulse deficits. Respiratory: Lungs have equal breath sounds bilaterally, clear to auscultation and percussion. No rales, rhonchi or wheezes noted. No increased work of breathing, no retractions or nasal flaring. Abdomen/GI: Soft, non-tender, with normal bowel sounds. No distension or tympany. No guarding or rebound. No evidence of tenderness throughout. MS/ Extremity: Pulses equal, no cyanosis. Neurovascular intact. Full, normal range of motion. Neuro: Awake and alert, GCS 15, oriented to person, place, time, and situation. Cranial nerves II-XII grossly intact. Motor strength 5/5 in all extremities. Sensory grossly intact. Cerebellar exam normal. Normal gait. Vital Signs: 11:38 BP 138 / 101; Pulse 94; Resp 16; Temp 97.7(TE); Pulse Ox 98% on R/A; Weight 99.79 kg; ss Height 5 ft. 2 in. (157.48 cm); Pain 0/10; 13:06 BP 105 / 73; Pulse 73; Resp 14; Pulse Ox 97% ; sv 11:38 Body Mass Index 40.24 (99.79 kg, 157.48 cm) ss MDM: 11:42 Patient medically screened. ma2 13:06 Differential diagnosis: hypoglycemia, hyponatremia, intracerebral hemorrhage, subdural ma2 hematoma, traumatic injuries. Data reviewed: vital signs, nurses notes. Counseling: I had a detailed discussion with the patient and/or guardian regarding: the historical points, exam findings, and any diagnostic results supporting the discharge/admit diagnosis, the presence of at least one elevated blood pressure reading (>120/80) during this emergency department visit, the need for outpatient follow up. Response to treatment: the patient's symptoms have markedly improved after treatment. 11/01 11:43 Order name: Basic Metabolic Panel; Complete Time: 13:04 ma2 11/01 11:43 Order name: CBC with Diff; Complete Time: 13:04 ms2 11/01 11:43 Order name: Creatinine for Radiology; Complete Time: 13:04 ms2 11/01 11:43 Order name: Hepatic Function; Complete Time: 13:04 ma2 11/01 11:43 Order name: Lipase; Complete Time: 13:04 ma2 11/01 12:24 Order name: Glucose, Ancillary Testing; Complete Time: 13:04 EDMS 11/01 11:41 Order name: CT Head Brain wo Cont; Complete Time: 13:04 ss 11/01 12:26 Order name: Glucose, Ancillary Testing EDMS 11/01 12:30 Order name: Urine Dipstick--Ancillary (enter results); Complete Time: 13:04 bd 11/01 12:30 Order name: Urine --Ancillary (enter results); Complete Time: 13:04 bd 11/01 11:43 Order name: IV Saline Lock; Complete Time: 13: ma2 11/01 11:43 Order name: Labs collected and sent; Complete Time: 13: ms2 11/01 11:49 Order name: Urine Dipstick-Ancillary (obtain specimen); Complete Time: 13:04 ma2 Administered Medications: 12:34 Drug: NS 0.9% 1000 ml Route: IV; Rate: 1 bolus; Site: right antecubital; sv 13:30 Follow up: Response: No adverse reaction; IV Status: Completed infusion; IV Intake: sv 1000ml 12:34 Drug: Ketorolac 15 mg Route: IVP; Site: right antecubital; sv 13:00 Follow up: Response: No adverse reaction; Marked relief of symptoms; Pain is decreased sv 12:35 Drug: Reglan 10 mg Route: IVP; Site: right antecubital; sv 13:00 Follow up: Response: No adverse reaction sv 12:37 Drug: Benadryl 50 mg Route: IVP; Site: right antecubital; sv 13:00 Follow up: Response: No adverse reaction sv Disposition: 11/01/19 13:08 Discharged to Home. Impression: Migraine without aura, Elevated blood glucose level. - Condition is Stable. - Discharge Instructions: Migraine Headache, Diabetes and Standards of Medical Care. - Prescriptions for Reglan 10 mg Oral Tablet - take 1 tablet by ORAL route every 6 hours take 30 minutes before meals and at bedtime; 20 tablet. Tylenol- Codeine #3 300-30 mg Oral Tablet - take 2 tablet by ORAL route every 6 hours As needed; 30 tablet. - Work release form, Medication Reconciliation Form, Thank You Letter, Antibiotic Education, Prescription Opioid Use form. - Follow up: Private Physician; When: Tomorrow; Reason: Continuance of care. - Notes: you have elevated blood sugar, follow up with your diabetes doctor, for further management Signatures: Dispatcher [employer] EDMarija Campo RN RN Amy Ray RN RN ss Kavitha Rondon MD MD ma2 Corrections: (The following items were deleted from the chart) 13:54 13:08 11/01/2019 13:08 Discharged to Home. Impression: Migraine without aura; Elevated ss blood glucose level. Condition is Stable. Forms are Medication Reconciliation Form, Thank You Letter, Antibiotic Education, Prescription Opioid Use. Follow up: Private Physician; When: Tomorrow; Reason: Continuance of care. ma2
[2019-11-01 15:25] VITALS: TEMP 97.7
[2019-11-01 15:27] VITALS: BP 105/73; O2SAT 97
== END 2019-11-01 13:54 | disposition home or self-care (01) ==
LOC: ER 11:10
DX: G43.009 Migraine without aura, not intractable, without status migrainosus (principal); E11.9 Type 2 diabetes mellitus without complications
CPT/HCPCS: 36415; 70450; 80048; 80076; 81003; 81025; 82947; 83690; 85025; 96361; 96374; 96375; 99284; J1200; J2765; J7030